=== PATIENT | female | born 1970 | race Caucasian/White ===

== ENCOUNTER → 2016-11-06 | Outpatient (CLI) | payer MEDICARE | LOC: RAD 08:42 | DX: R10.32 Left lower quadrant pain (principal); K59.00 Constipation, unspecified; R10.13 Epigastric pain ==

== ENCOUNTER → 2021-10-06 | Outpatient (CLI) | payer MEDICARE | LOC: EXRD 10:48 | DX: R07.9 Chest pain, unspecified (principal) | CPT/HCPCS: 71046 ==

== ENCOUNTER → 2022-02-02 | Outpatient (CLI) | payer MEDICARE | LOC: US 01-20 10:15 | DX: K21.9 Gastro-esophageal reflux disease without esophagitis (principal); R12 Heartburn; K44.9 Diaphragmatic hernia without obstruction or gangrene; R10.9 Unspecified abdominal pain | CPT/HCPCS: 76700 ==

== ENCOUNTER → 2022-03-06 | Outpatient (CLI) | payer MEDICARE | LOC: NM 10:30 | DX: R10.9 Unspecified abdominal pain (principal); R93.2 Abnormal findings on diagnostic imaging of liver and biliary tract | CPT/HCPCS: 78226; A9537 ==